=== PATIENT | female | born 1990 | race Caucasian/White ===

== ENCOUNTER 2016-08-18 01:48 | Emergency (ER) | payer MEDICAID ==
--- NOTE | 2016-08-18 01:55 | CPEKG ---
Heart Rate: 87 RR Interval: 690 P-R Interval: 132 QRSD Interval: 74 QT Interval: 372 QTC Interval: 448 P [place]: 21 QRS [place]: 44 T Wave [place]: 22 EKG Severity - BORDERLINE ECG - EKG Impression: SINUS RHYTHM EKG Impression: INFERIOR Q WAVES, PROBABLY NORMAL VARIATION EKG Impression: Scoping seen in II as well as V4-6, compatible with normal variant. EKG Impression: Insignificant cues in 2 3 and F. normal EKG. Electronically Signed By: Santo Shepard 18-Aug-2016 02:49:45
[2016-08-18] MEDS ORDERED: ASPIRIN 81 MG CHEWABLE TAB PO ONE (02:27)
[2016-08-18] MEDS ORDERED: LORazepam 2 MG/ML INJ IVP ONE ×2 (02:28→04:38)
[2016-08-18] MEDS ORDERED: LORazepam 2 MG/ML INJ ONE ×2 (02:29→04:32)
--- NOTE | 2016-08-18 02:32 | EDPHY ---
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 She was dressing this morning and in the near noted a rash present to the right anterior neck came down from mid neck toward the clavicle. This was without any discomfort or achiness or itchiness, simply a macular rash. By noon when she was at a local restaurant visiting with a friend the rash seemed to be more evident, she became somewhat flushed, and she started noticing that she had pain in the right shoulder region-at which time she points to the scalene muscles in the right mid lateral neck. It was bothersome enough that she became more more distressed and asked her friend to take her home. Her friend drove as she had a standard transmission and did not feel that she could actually operate the stick shift well due to the movement required with the right shoulder. It was sensitive to movement. Throughout the day the pain is been there present and simply not going away. She did try to go to sleep tonight however could not find a comfortable position. It was particularly bad for her to lay on her right side. She is typically a back sleeper and was able to get some rest but only transiently. Through the attempt to get to sleep, things worsen simply getting worse but certainly no better she became more more perseverating about this being an allergy process. That was fixed in her mind due to the fact that there was a rash at the beginning although the rash had subsided somewhere around 2:00 p.m.. She attributes that to taking the ibuprofen for the discomfort as well as Benadryl for the rash earlier around 1:00 a.m. She has had no recent injuries or exercise intolerance or progressive fatigue in the last month. There has been no prolonged immobilization. She has never had any bracing on the knees or ankles in the last 6 months. She does not have a personal or family history of DVT or PE. The murmur is heard on this exam, she does not have a history of murmurs. Cardiac risk factors: DM no HTN no High Chol no Smoking no Family History - likely, her father has had a sternotomy for unknown reasons. She is unable to discern whether this was coronary disease, bypass surgery, valve surgery or aortic dissection. Also, she has had early for unknown reasons into paternal uncles Obesity - yes SLE type illeness - no HIV - no Hypertension no Known Aortic aneurysm no Bicuspid aortic Valve no, though she does have a murmur heard on exam at this time Aortic Valve disease no Family Hx of aortic diesease perhaps-father with heart surgery of some sort, 2 paternal uncles with early in the 30s or 40s Polycystic Kidney Disease no Collagen vascular disease no Aortic Regurg Murmur no Aortic instrumentation recent no Blunt trauma, recent no Unable to form form perc rule as she is on control pills Prior DVT/PE: No Immobilization: No Splint/Cast: No Surgery: No Family hstory of hypercoaguable syndrome: No Unilateral leg swelling: She has had some recent left calf achiness and is slightly tender on exam today without cords-see below Obesity yes P: The pain in the right shoulders with movement of the arm itself as well as turning the head Q: Achiness R: At the base of the neck with the neck meets the trapezius and scaling S: Moderate T: Slowly progressive through the day beginning around noon, steady since that time. Furthermore, there are episodes of a evanescent, short pain and left pectoral area without any breathing precipitant or pleuritic component that lasts for seconds and happen sporadically. REVIEW OF SYSTEMS: Constitutional: No fever, no chills. Eyes: No discharge. ENT: No sore throat. Cardiovascular: No chest pain, no palpitations. Respiratory: No cough, shortness of breath, or wheezing. Gastrointestinal: No nausea vomiting or diarrhea. No abdominal pain. Genitourinary: No hematuria or frequency. Musculoskeletal: No back pain, nor midscapular pain Skin: No rashes. Neurological: No headache. 10 point ROS otherwise negative Source: Patient Exam Limitations: No limitations - Personal History Current Tetanus/Diphtheria Vaccine: Yes - Medical/Surgical History Hx Asthma: No Hx Chronic Respiratory Disease: No Hx Diabetes: No Hx Cardiac Disease: No Hx Renal Disease: No Hx Cirrhosis: No Hx Alcoholism: No Hx HIV/AIDS: No Other PMH: allopecia - Family History Significant Family History: Heart disease (Father has a sternotomy scar, she presumes CAD. Two paternal uncles with early , unknown cause.) - Social History Smoking Status: Never smoked Alcohol Use: None Drug Use: None - Physical Exam Exam: General Appearance: Alert, mild distress, anxious in a few beads of sweat on the upper lip. Bilateral blood pressures though somewhat elevated are symmetrical. Afebrile. Normal phonation. No respiratory distress. Eyes: Pupils equal and round no pallor or injection. No icterus ENT, Mouth: Mucous membranes moist. Pharynx without erythema or exudate. TM Clear. Neck: No adenopathy. Supple. No JVD. Trachea in midline. She is tender on the right overlying the scalene muscles which reproduces the pain and have cords associated with with such. Respiratory: There are no retractions, lungs are clear to auscultation. Chest is nontender to palpation. Cardiovascular: Regular rate and rhythm, there is a blowing holosystolic murmur heard only at the apex grade 1/6. Abdomen: Soft and nontender, no masses, bowel sounds normal. Femoral pulses equal. Neurological: Ox3. No motor weakness. Sensation intact. Gait nl. Skin: Warm and dry, no rashes. Musculoskeletal: No joint swelling. Extremities: No edema. Homans sign negative on the right. No cords are felt on the right. However on the left she is tender to the calf direct palpation however likewise, no cords are felt Psychiatric: Normal affect, though anxious more than most. Patient is oriented X 3, there is no agitation Constitutional: Initial Vital Signs Temperature (C) 36.6 C 08/18/16 01:54 Heart Rate 88 08/18/16 01:54 Respiratory Rate 22 H 08/18/16 01:54 Blood Pressure 156/110 H 08/18/16 01:54 O2 Sat (%) 98 08/18/16 01:54 O2 Delivery Mode Room Air Allergies/Adverse Reactions: amoxicillin Allergy (Verified 05/12/15 22:09) amoxicillin trihydrate [From Augmentin] Allergy (Verified 05/12/15 22:09) cephalexin Allergy (Verified 05/12/15 22:09) Cephalosporins Allergy (Verified 05/12/15 22:09) Penicillins Allergy (Verified 05/12/15 22:09) potassium clavulanate [From Augmentin] Allergy (Verified 05/12/15 22:09) Home Medications: Medication Instructions Recorded Acetaminophen [Acetaminophen 8 1,300 mg PO Q8 #0 tablet.sa 08/18/16 Hour] Ibuprofen [Motrin (*)] 600 mg PO TID #21 tab 08/18/16 Medical Decision Making - Diagnostics EKG Interpretation: EKG: Interpreted by me contemporaneously. Normal sinus rhythm. Heart rate [ 87 ]. [id number] cues in 2 3 and F QTc [ 421 ] STT segment: Scooping seen inferiorly and to a lesser extent laterally normal variant. T Waves: Normal Summary: Normal EKG Imaging Results: Chest x-ray. Two-view chest. Interpreted by me contemporaneously. Normal chest. Normal mediastinum. Normal cardiac silhouette. No signs of aortic widening or mediastinal widening or blurring of the aortic knob or cardiomegaly. ED Course/Re-evaluation: At the conclusion of the exam I had a discussion with her regarding treatment protocols and diagnostic workup. She is aware of the need for a baseline troponin and 3 hour troponin. Thereby I discussed with her Ativan 0.5 mg IV which was given with anticipation of her calling for a ride some 4 hours from now if indeed 3 hour troponin was normal. Two-view chest x-ray shows normal cardiac silhouette and normal aortic silhouette, with no signs of mediastinal widening, see interpretation above. After the initial 324 of aspirin as well as 0.5 mg IV Ativan approximately 1 hour later she was given 60 mg of ibuprofen as her last dose of ibuprofen has been approximately 13 hours ago. Labs came back uneventfully except for mildly elevated white count. She exhibited no signs of fever. Electrolytes stable. First and 3 hour follow-up troponins were undetectable. Her heart score is 1 based upon family history. The overwhelming likelihood this is a muscle strain to the tenderness of the scalene muscles which reproduces the pain. Thus she would manage accordingly with pain management consisting of ibuprofen 600 as well as Tylenol 1300 three times daily in addition to p.r.n. Ativan. [place] Prescription Drug Monitoring Program checked: She received 30 tabs of hydrocodone, September 2015 She received 30 tramadol number, September 2015 She was given additional dose of Ativan 0.5 mg IV as her anxiety had not subsided enough. Ultimately when checked at 6:10 a.m. she was somnolent, somewhat flushed, afebrile. Differential Diagnosis: Differential diagnosis includes but is not limited to the following: ACS, myocardial infarction, pneumothorax, pleurisy, pulmonary embolus, aortic dissection, anxiety, muscle strain, herniated disc, radicular pain, sprain of joint. - Data Points Laboratory Results: Laboratory Results 08/18/16 02:00 08/18/16 02:00 08/18/16 08/18/16 08/18/16 05:36 02:00 02:00 WBC RBC Hgb Hct MCV MCH MCHC RDW Plt Count MPV Neut % (Auto) Lymph % (Auto) Moca % (Auto) Eos % (Auto) Baso % (Auto) Nucleat RBC Rel Count Absolute Neuts (auto) Absolute Lymphs (auto) Absolute Monos (auto) Absolute Eos (auto) Absolute Basos (auto) Absolute Nucleated RBC Immature Gran % Immature Gran # D-Dimer < 0.27 ug/mLFEU ug/mLFEU (0.00-0.50) Sodium Potassium Chloride Carbon Dioxide Anion Gap BUN Creatinine Estimated GFR Glucose Calcium Troponin I < 0.012 ng/mL ng/mL (0-0.034) Beta HCG, Qual NEGATIVE 08/18/16 08/18/16 02:00 02:00 WBC 13.17 10^3/uL H 10^3/uL (3.80-9.50) RBC 4.71 10^6/uL 10^6/uL (4.18-5.33) Hgb 14.0 g/dL g/dL (12.6-16.3) Hct 40.7 % % (38.0-47.0) MCV 86.4 fL fL (81.5-99.8) MCH 29.7 pg pg (27.9-34.1) MCHC 34.4 g/dL g/dL (32.4-36.7) RDW 14.3 % % (11.5-15.2) Plt Count 416 10^3/uL H 10^3/uL (150-400) MPV 11.6 fL fL (8.7-11.7) Neut % (Auto) 63.4 % % (39.3-74.2) Lymph % (Auto) 27.9 % % (15.0-45.0) Moca % (Auto) 6.9 % % (4.5-13.0) Eos % (Auto) 1.0 % % (0.6-7.6) Baso % (Auto) 0.5 % % (0.3-1.7) Nucleat RBC Rel Count 0.0 % % (0.0-0.2) Absolute Neuts (auto) 8.36 10^3/uL H 10^3/uL (1.70-6.50) Absolute Lymphs (auto) 3.67 10^3/uL H 10^3/uL (1.00-3.00) Absolute Monos (auto) 0.91 10^3/uL H 10^3/uL (0.30-0.80) Absolute Eos (auto) 0.13 10^3/uL 10^3/uL (0.03-0.40) Absolute Basos (auto) 0.06 10^3/uL 10^3/uL (0.02-0.10) Absolute Nucleated RBC 0.00 10^3/uL 10^3/uL (0-0.01) Immature Gran % 0.3 % % (0.0-1.1) Immature Gran # 0.04 10^3/uL 10^3/uL (0.00-0.10) D-Dimer Sodium 140 mEq/L mEq/L (134-144) Potassium 4.0 mEq/L mEq/L (3.5-5.2) Chloride 102 mEq/L mEq/L (97-110) Carbon Dioxide 21 mEq/l L mEq/l (22-31) Anion Gap 17 mEq/L H mEq/L (8-16) BUN 11 mg/dL mg/dL (7-23) Creatinine 0.6 mg/dL mg/dL (0.6-1.0) Estimated GFR > 60 Glucose 95 mg/dL mg/dL (70-100) Calcium 8.7 mg/dL mg/dL (8.5-10.4) Troponin I < 0.012 ng/mL ng/mL (0-0.034) Beta HCG, Qual Medications Given: Discontinued Medications Aspirin (Aspirin) 324 mg PO EDNOW ONE Stop: 08/18/16 02:28 Last Admin: 08/18/16 02:35 Dose: 324 mg Ibuprofen (Motrin) 600 mg PO EDNOW ONE Stop: 08/18/16 03:05 Last Admin: 06/08/17 03:14 Dose: 600 mg Lorazepam (Ativan Injection) 0.5 mg IVP ONCE ONE Stop: 08/18/16 02:29 Last Admin: 08/18/16 02:35 Dose: 0.5 mg Lorazepam (Ativan Injection) 0.5 mg IVP EDNOW ONE Stop: 08/18/16 04:39 Last Admin: 08/18/16 04:39 Dose: 0.5 mg Departure - Departure Disposition: Home, Routine, Self-Care Clinical Impression: Heart murmur previously undiagnosed Cervical muscle strain Qualifiers: Encounter type: initial encounter Qualified Code(s): S16.1XXA - Strain of muscle, fascia and tendon at neck level, initial encounter Condition: Good Instructions: Muscle Strain (ED) Additional Instructions: Tylenol and Advil works well together the combination: Tylenol extended-release 1300 mg and 600 mg every 8 hours, as needed for pain Twice a day apply 10 minutes feet, followed by 10 minutes of massage followed by 10 minutes of ice She contacted her family doctor for the following: Consideration of physical therapy if not improved in 1 week Double checking a heart murmur Check in with her father about what he had done with respect to his chest surgery as well as the early of your uncles. Referrals: Patient,NotPresent [Primary Care Provider] - As per Instructions Stand Alone Forms: Work Limited Duty, Work Excuse Prescriptions: Acetaminophen [Acetaminophen 8 Hour] 1,300 mg PO Q8 #0 tablet.sa Ibuprofen [Motrin (*)] 600 mg PO TID #21 tab
[2016-08-18 02:38] LABS: % IMMATURE GRANULYOCYTES 0.3 % (0.0-1.1); ABSOLUTE IMMATURE GRANULOCYTES 0.04 10^3/uL (0.00-0.10); ADD DIFF? NO; ADD MORPH? NO; ADD SCAN? NO; ATYPICAL LYMPHOCYTE FLAG 10 (0-99); FRAGMENT RBC FLAG 0 (0-99); HEMATOCRIT 40.7 % (38.0-47.0); LEFT SHIFT FLG 0 (0-99); LIPEMIA HEMOLYSIS FLAG 90 (0-99); MEAN CELL HEMOGLOBIN 29.7 pg (27.9-34.1); MEAN CELL HEMOGLOBIN CONCENTR. 34.4 g/dL (32.4-36.7); MEAN CELL VOLUME 86.4 fL (81.5-99.8); MEAN PLATELET VOLUME 11.6 fL (8.7-11.7); PLATELET CLUMPS FLAG 0 (0-99); PLATELET COUNT 416 10^3/uL (150-400); RED BLOOD CELL COUNT 4.71 10^6/uL (4.18-5.33); RED CELL DISTRIBUTION WIDTH 14.3 % (11.5-15.2)
[2016-08-18 02:44] LABS: ANION GAP 17 mEq/L (8-16); CALCIUM 8.7 mg/dL (8.5-10.4); CARBON DIOXIDE 21 mEq/l (22-31); CHLORIDE 102 mEq/L (97-110); CREATININE 0.6 mg/dL (0.6-1.0); GLOMERULAR FILTRATION RATE > 60; GLUCOSE 95 mg/dL (70-100); SODIUM 140 mEq/L (134-144)
[2016-08-18 02:56] LABS: TROPONIN I < 0.012 ng/mL (0-0.034)
[2016-08-18] MEDS ORDERED: IBUPROFEN 600 MG TAB PO ONE (03:04)
[2016-08-18 04:37] VITALS: O2SAT 96
[2016-08-18 06:16] VITALS: BP 158/115; PULSE 88; RESP 17; TEMP 98.4
== END 2016-08-18 06:38 | disposition home or self-care (01) ==
LOC: CED 01:48
DX: S16.1XXA Strain of muscle, fascia and tendon at neck level, initial encounter (principal); R01.1 Cardiac murmur, unspecified; X58.XXXA Exposure to other specified factors, initial encounter
CPT/HCPCS: 71020-PO; 80048-PO; 84484-PO; 84703-PO; 85025-PO; 85378-PO; 96374; J2060